=== PATIENT | female | born 1995 | race Caucasian/White ===

== ENCOUNTER 2019-06-15 06:30 | Inpatient (IN) ==
[2019-06-06 14:38] VITALS: BP 117/65
[2019-06-15] MEDS ORDERED: VERSED ONE (13:19)
[2019-06-15] MEDS ORDERED: 1/2 NS IV ONE (15:21)
[2019-06-15] MEDS ORDERED: D5 1/2 NS 1000 ML ONE (15:21)
[2019-06-15] MEDS ORDERED: D5 IV ONE (15:21)
[2019-06-15] MEDS ORDERED: XYLOCAINE 2% and EPINEPHRINE 1:100,000 ONE (15:21)
[2019-06-15] MEDS ORDERED: NAROPIN EPIDURAL 0.2% ONE (15:21)
[2019-06-15] MEDS ORDERED: ANCEF 1 GRAM IV PREMIX IV ONE (15:21)
[2019-06-15] MEDS ORDERED: [UNRECOGNIZED DRUG - OTHER] IV ONE (15:21)
[2019-06-15] MEDS ORDERED: BETADINE SOLN ONE (15:21)
[2019-06-15] MEDS ORDERED: D5 NS 1000 ML ONE (15:21)
[2019-06-15] MEDS ORDERED: DURAGESIC 100 mcg/HR PATCH TD ONE (15:21)
[2019-06-15] MEDS ORDERED: PITOCIN ONE (15:21)
[2019-06-15] MEDS ORDERED: PERCOCET TAB 5/325 MG ONE ×4 (18:45→23:00)
[2019-06-16] MEDS ORDERED: PERCOCET TAB 5/325 MG PO ONE ×2 (05:10→09:38)
[2019-06-16] MEDS ORDERED: PERCOCET TAB 5/325 MG ONE ×2 (05:10→09:38)
[2019-06-16] MEDS ORDERED: PRENATAL PLUS PO ONE (09:11)
[2019-06-16] MEDS ORDERED: PRENATAL PLUS ONE (09:11)
[2019-06-16] MEDS ORDERED: BACTROBAN CREAM ONE (14:01)
[2019-06-16] MEDS ORDERED: BACTROBAN CREAM TOP ONE (14:01)
[2019-06-20 11:14] LABS: HEMATOCRIT 34.5 % (36.0-47.0); HEMOGLOBIN 11.4 g/dL (12.0-16.0)
== END 2019-06-16 18:05 | disposition home or self-care (01) | DRG 798 ==
LOC: MED/SURG 06:30 → OBS 06:31 → MED/SURG 06:32 → UNDODISIN 06-16 18:05
PROVIDERS: ADMIT Specialist; ATTEND Specialist
DX: Z3A.39 39 weeks gestation of pregnancy; Z01.818 Encounter for other preprocedural examination; Z37.0 Single live birth; Z01.812 Encounter for preprocedural laboratory examination; Z30.2 Encounter for sterilization; O99.013 Anemia complicating pregnancy, third trimester
CPT/HCPCS: 36415; 59409; 80048; 80307; 81001; 85014; 85018; 85025; 86592; 86850; 86900; 86901; A4222; S0197; G0434; J0690; J2001; J2250; J2590; J2795; J3490; J7042; S5010